=== PATIENT | male | born 1930 | race Hispanic/Latino ===

== ENCOUNTER 2018-03-28 10:51 | Emergency (ER) | payer MEDICARE, OTHER ==
[2018-03-28 10:51] VITALS: BMI 24.3
[2018-03-28 10:58] VITALS: BP 177/82; PULSE 70; RESP 16; TEMP 98.4; O2SAT 99
--- NOTE | 2018-03-28 11:24 | C.PDOC ---
History Of Present Illness 87 yo male c/o right groin pain for 2 months. Notes that the pain is worse with certain movements or straining. Denies feeling a lump, swelling, redness, abdominal pain , symptoms, testicular pain or discharge. Pt is also requesting a referral to an eye doctor. Pt notes that he had cataract surgery to the left eye last year and feels like his vision is not better. Pt followed up with eye surgeon 2 months ago at [facility], but "he didnt do anything." No new symptoms in the last year. No discharge or pain to the eye. 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) History/Exam Limitations: no limitations Onset/Duration Of Symptoms: Days Current Symptoms Are (Timing): Still Present Past Medical History Vital Signs: Last Vital Signs Temp 98.4 F 03/28/18 10:54 Pulse 70 03/28/18 10:54 Resp 16 03/28/18 10:54 BP 177/82 H 03/28/18 10:54 Pulse Ox 99 03/28/18 11:27 - Medical History PMH: Fractures (Right 2nd and 3rd metatarsals 12/11/14) Denies: Diabetes Surgical History: Cholecystectomy, Hernia Repair - [facility] OTHER CAST APPLICATION (12/11/14) Family History: States: Unknown Family Hx - Social History Hx Alcohol Use: No Hx Substance Use: No Review Of Systems Except As Marked, All Systems Reviewed And Found Negative. Physical Exam - Physical Exam Appears: Well, Non-toxic, No Acute Distress Skin: Normal Color, Warm, Dry Head: Atraumatic, Normacephalic Eye(s): right: Other (White cornea), left: PERRL, EOMI Nose: Normal Oral Mucosa: Moist Neck: Normal, Normal ROM, Supple Chest: Symmetrical Cardiovascular: Rhythm Regular Respiratory: Normal Breath Sounds Gastrointestinal/Abdominal: Normal Exam, Soft, No Tenderness Back: Normal Inspection Male Genital: No Testicular Tenderness, No Testicular Swelling, Inguinal Tenderness (right), No Inguinal Swelling Extremity: Normal ROM (at right hip), No Calf Tenderness Neurological/Psych: Oriented x3, Normal Speech ED Course And Treatment O2 Sat by Pulse Oximetry: 99 Progress Note: Pt has no evidence of infection or surgical abdomen. Afebrile. Tolerating PO. Pt was instructed to follow up with surgeon and eye doctor after discharge. Instructed to return to ER if symtpoms persist or worsen. Disposition - Disposition Referrals: [facility] [Outside] Tirso Zuniga MD [Staff Provider] - Temo Gutierrez [Staff Provider] - Disposition: HOME/ ROUTINE Disposition Time: 11:25 Condition: STABLE Additional Instructions: Go to the eye doctor after discharge. Vaya al oculista despus del fabricio. Ayush un seguimiento con schmid PMD o cirujano en 1-2 serrano. Regrese a la mckenzie de emergencias si los sntomas persisten o empeoran. Instructions: Groin Hernia (DC) Forms: [facility] ([place]) Print Language: POLISH - Clinical Impression Clinical Impression: Strain of groin
== END 2018-03-28 11:53 | disposition home or self-care (01) ==
LOC: C.ER 10:51
DX: S39.011A Strain of muscle, fascia and tendon of abdomen, initial encounter (principal); X58.XXXA Exposure to other specified factors, initial encounter; Y92.9 Unspecified place or not applicable